=== PATIENT | female | born 1950 | race Two or more races ===

== ENCOUNTER 2021-02-02 05:47 | Day surgery (SDC) | payer OTHER ==
[~2021-02-02 05:47] MED LIST: LOSARTAN-HCTZ1 EAC1 PO; TIROSINT125 MCG PO; TOPROL XL25 M1 PO
== END 2021-02-02 18:10 | disposition home or self-care (01) ==
LOC: CIR.AMB 05:47
PROVIDERS: ATTEND Surgery
DX: C50.412 Malignant neoplasm of upper-outer quadrant of left female breast (principal)

== ENCOUNTER 2021-06-08 05:36 | Day surgery (SDC) | payer OTHER ==
[~2021-06-08 05:36] MED LIST changes: +ANASTROZOLE1 MG PO
== END 2021-06-08 14:50 | disposition home or self-care (01) ==
LOC: CIR.AMB 05:36
PROVIDERS: ATTEND Surgery
DX: Z15.01 Genetic susceptibility to malignant neoplasm of breast (principal); Z85.3 Personal history of malignant neoplasm of breast; Z20.822 Contact with and (suspected) exposure to COVID-19